=== PATIENT | male | born 1980 | race Caucasian/White ===

== ENCOUNTER 2017-11-01 16:09 | Inpatient (IN) | payer SELFPAY ==
[2017-11-01] VITALS (7 sets, daily range): BP systolic 119–140; BP diastolic 55–85; PULSE 82–99; RESP 18–21; TEMP 97.8–99.3; O2SAT 94–99
[2017-11-01] MEDS ORDERED: DIPHTH/TETANUS/ACEL PERTUSSIS (BOOSTER) 0.5 ML VIAL/PFS IM ONE ×2 (16:15→16:49)
[2017-11-01] MEDS ORDERED: ceFAZolin 2 GM PREMIX 50 ML ONE (16:15)
--- NOTE | 2017-11-01 16:35 | RADRPT ---
EXAM DATE/TIME: 11/01/2017 16:11 [facility] COMPARISON: No previous studies available for comparison. INDICATIONS : Trauma alert, fall from ladder. MEDICAL HISTORY : None. SURGICAL HISTORY : None. ENCOUNTER: Initial ACUITY: 1 day PAIN SCORE: Non-responsive. LOCATION: Bilateral chest FINDINGS: A single view of the chest demonstrates the lungs to be symmetrically aerated without evidence of mas s, infiltrate or effusion. The cardiomediastinal contours are unremarkable. Osseous structures are intact. CONCLUSION: 1. Negative trauma portable chest. Christian Cutler MD on November 01, 2017 at 16:32 Board Certified Radiologist. This report was verified electronically.
--- NOTE | 2017-11-01 16:38 | RADRPT ---
EXAM DATE/TIME: 11/01/2017 16:11 [facility] COMPARISON: No previous studies available for comparison. INDICATIONS : Trauma alert, fall from ladder. MEDICAL HISTORY : None. SURGICAL HISTORY : None. ENCOUNTER: Initial ACUITY: 1 day PAIN SCORE: Non-responsive. LOCATION: Bilateral pelvis FINDINGS: A single frontal view of the pelvis demonstrates no evidence of fracture. The bony pelvic ring is in tact. Bony mineralization is normal. The soft tissues are intact. CONCLUSION: 1. Limited underpenetrated exam. 2. No acute fracture or dislocation. Christian Cutler MD on November 01, 2017 at 16:35 Board Certified Radiologist. This report was verified electronically.
--- NOTE | 2017-11-01 16:40 | RADRPT ---
EXAM DATE/TIME: 11/01/2017 16:11 [facility] COMPARISON: No previous studies available for comparison. INDICATIONS : Trauma alert, fall from ladder. MEDICAL HISTORY : None. SURGICAL HISTORY : None. ENCOUNTER: Initial ACUITY: 1 day PAIN SCORE: Non-responsive. LOCATION: Left wrist. FINDINGS: Comminuted fracture of the distal radius with fracture extending through the radiocarpal joints. Ther e is mild ulnar and volar angulation of a distal fragment. Carpal bones are grossly intact although e valuation is limited due to lack of true lateral view. Diffuse soft tissue swelling about the wrist. CONCLUSION: 1. Comminuted distal radial fracture, as above. Christian Cutler MD on November 01, 2017 at 16:36 Board Certified Radiologist. This report was verified electronically.
[2017-11-01] MEDS ORDERED: ONDANSETRON HCL 4 MG/2 ML VIAL ONE (16:42)
[2017-11-01] MEDS ORDERED: ceFAZolin 2 GM/DEX PREMIX 50 ML IV STA (16:49)
[2017-11-01 16:52] LABS: BICARBONATE 21.4 MEQ/L (21.0-32.0); CALCIUM 9.1 MG/DL (8.5-10.1); CREATININE 1.46 MG/DL (0.60-1.30)
--- NOTE | 2017-11-01 16:55 | RADRPT ---
EXAM DATE/TIME: 11/01/2017 16:30 [facility] COMPARISON: No previous studies available for comparison. INDICATIONS : Trauma. Fall. RADIATION DOSE: 56.35 CTDIvol (mGy) MEDICAL HISTORY : None SURGICAL HISTORY : None. ENCOUNTER: Initial ACUITY: 1 day PAIN SCALE: 10/10 LOCATION: cranial TECHNIQUE: Multiple contiguous axial images were obtained of the head. Using automated exposure control and adj ustment of the mA and/or kV according to patient size, radiation dose was kept as low as reasonably a chievable to obtain optimal diagnostic quality images. DICOM format image data is available electro nically for review and comparison. FINDINGS: CEREBRUM: Limited subarachnoid hemorrhage in the frontal mid to high convexities and parafalcine region. Questi onable subtle intraparenchymal blood product in the right anterior frontal mid convexities. Mild diff use cerebral atrophy. The ventricles are normal for degree of atrophy. No evidence for midline shift. POSTERIOR FOSSA: The cerebellum and brainstem are intact. The 4th ventricle is midline. The cerebellopontine angle i s unremarkable. EXTRACRANIAL: The visualized portion of the orbits is intact. Large soft tissue hematoma in the right frontal scalp /periorbital region. SKULL: The calvaria is intact. No evidence of skull fracture. CONCLUSION: 1. Limited subarachnoid hemorrhage in the frontal high convexities and parafalcine region with questi onable subtle intraparenchymal hemorrhage in the right anterior frontal mid convexities. 2. Large soft tissue hematoma in the right frontal scalp/periorbital region. No calvarial fracture. Christian Cutler MD on November 01, 2017 at 16:48 Board Certified Radiologist. This report was verified electronically.
--- NOTE | 2017-11-01 16:58 | RADRPT ---
EXAM DATE/TIME: 11/01/2017 16:30 [facility] COMPARISON: No previous studies available for comparison. INDICATIONS : Trauma. Fall. RADIATION DOSE: 22.81 CTDIvol (mGy) MEDICAL HISTORY : None SURGICAL HISTORY : None. ENCOUNTER: Initial ACUITY: 1 day PAIN SCALE: 10/10 LOCATION: neck TECHNIQUE: Volumetric scanning of the cervical spine was performed. Multiplanar reconstructions i n the sagittal, coronal and oblique axial planes were performed. Using automated exposure control a nd adjustment of the mA and/or kV according to patient size, radiation dose was kept as low as reason ably achievable to obtain optimal diagnostic quality images. DICOM format image data is available e lectronically for review and comparison. FINDINGS: Vertebral body heights are maintained. Osseous structures are intact without evidence for acute bony fracture. Dens is intact. Sagittal alignment is maintained. There is a normal C1-2 relationship. Face ts are normally aligned. There is no significant prevertebral soft tissue hematoma. No significant ce rvical adenopathy or gross mass. The thyroid appears unremarkable. Visualized lung apices are clear w ithout pneumothorax. CONCLUSION: 1. No acute fracture or subluxation. Christian Cutler MD on November 01, 2017 at 16:53 Board Certified Radiologist. This report was verified electronically.
[2017-11-01] MEDS ORDERED: SODIUM CHLOR 0.9% 1000 ML INJ 1,000 ML IV ONE (17:00)
--- NOTE | 2017-11-01 17:00 | RADRPT ---
EXAM DATE/TIME: 11/01/2017 16:30 [facility] COMPARISON: No previous studies available for comparison. INDICATIONS : Trauma. Fall. RADIATION DOSE: 21.96 CTDIvol (mGy) MEDICAL HISTORY : None SURGICAL HISTORY : None. ENCOUNTER: Initial ACUITY: 1 day PAIN SCORE: 10/10 LOCATION: Bilateral facial TECHNIQUE: Volumetric scanning of the facial bones was performed. Using automated exposure control and adjustme nt of the mA and/or kV according to patient size, radiation dose was kept as low as reasonably achiev able to obtain optimal diagnostic quality images. DICOM format image data is available electronicall y for review and comparison. FINDINGS: ORBITS: The orbital and infraorbital osseous structures are intact. The retroconal structures have a normal configuration. No radiopaque foreign bodies are seen. NASAL BONE: The nasal bone and maxillary spine are intact ZYGOMATIC ARCHES: Symmetric without evidence of fracture. SINUSES: The maxillary, ethmoid and frontal sinuses are intact. No air-fluid levels seen. NASAL CAVITY: The nasal septum is intact and midline. The lacrimal ducts are intact. SOFT TISSUES: Large soft tissue hematoma overlying the right scalp/supraorbital soft tissues. INTRACRANIAL: No intracranial air seen. CRIBIFORM PLATE: Grossly intact. CONCLUSION: 1. Large soft tissue hematoma overlying the right scalp/supraorbital soft tissues. 2. No acute facial fractures. Christian Cutler MD on November 01, 2017 at 16:56 Board Certified Radiologist. This report was verified electronically.
--- NOTE | 2017-11-01 17:24 | HHI.HP ---
[facility] Service Critical Care Medicine Primary Care Physician Admission Diagnosis Diagnosis: Chief Complaint: Headache Travel History International Travel<30 Days: No Contact w/Intl Traveler <30 Da: No Traveled to Known Affected Are: No History of Present Illness This is a gentleman who fell from a ladder of an unknown height. There was loss of consciousness and all he remembers is waking up in the ambulance. He was brought in his level 2 trauma alert alert and oriented with a Devin Coma Scale of 15 his vital signs were stable. He had a small laceration to the lateral border of his right eyebrow and an obvious left wrist deformity. Review of Systems Constitutional: DENIES: Diaphoretic episodes, Fatigue, Fever, Weight gain, Weight loss, Chills, Dizziness, Change in appetite, Night Sweats Endocrine: DENIES: Heat/cold intolerance, Polydipsia, Polyuria, Polyphagia Eyes: DENIES: Blurred vision, Diplopia, Eye inflammation, Eye pain, Vision loss , Photosensitivity, Double Vision Ears, nose, mouth, throat: DENIES: Tinnitus, Hearing loss, Vertigo, Nasal discharge, Oral lesions, Throat pain, Hoarseness, Ear Pain, Running Nose, Epistaxis, Sinus Pain, Toothache, Odynophagia Respiratory: DENIES: Apneas, Cough, Snoring, Wheezing, Hemoptysis, Sputum production, Shortness of breath Cardiovascular: DENIES: Chest pain, Palpitations, Syncope, Dyspnea on Exertion , PND, Lower Extremity Edema, Orthopnea, Claudication Gastrointestinal: DENIES: Abdominal pain, Black stools, Bloody stools, Constipation, Diarrhea, Nausea, Vomiting, Difficulty Swallowing, Anorexia Genitourinary: DENIES: Sexual dysfunction, Urinary frequency, Urinary incontinence, Urgency, Hematuria, Dysuria, Nocturia, Penile Discharge, Testicular Pain, Testicular Swelling Musculoskeletal: COMPLAINS OF: Joint pain (Left wrist), DENIES: Muscle aches, Stiffness, Joint Swelling, Back pain, Neck pain Integumentary: DENIES: Abnormal pigmentation, Nail changes, Pruritus, Rash Hematologic/lymphatic: DENIES: Bruising, Lymphadenopathy Immunologic/allergic: DENIES: Eczema, Urticaria Neurologic: DENIES: Abnormal gait, Headache, Localized weakness, Paresthesias, Seizures, Speech Problems, Tremor, Poor Balance Psychiatric: DENIES: Anxiety, Confusion, Mood changes, Depression, Hallucinations, Agitation, Suicidal Ideation, Homicidal Ideation, Delusions Past Family Social History Allergies: Coded Allergies: No Allergy Information Available (Unverified , 11/01/17) TRAUMA PATIENT Past Medical History Patient denies any significant medical history Past Surgical History Patient denies any significant surgical history Reported Medications Patient denies any medication on a daily basis Family History Reviewed and not relevant Social History Patient denies alcohol tobacco or drug use Physical Exam Vital Signs Vital Signs Date Time Temp Pulse Resp B/P (MAP) Pulse Ox O2 Delivery O2 Flow Rate FiO2 11/01/17 17:07 93 18 97 Room Air 11/01/17 17:07 98 Room Air 11/01/17 17:01 93 18 119/55 (76) 97 Room Air 11/01/17 16:10 98 21 Physical Exam Alert and oriented, no acute distress Small superficial laceration over the right eye brow Pupils equal round reactive to light extraocular movement intact sclera nonicteric conjunctiva pink Neck is soft trachea is midline he has no cervical tenderness to palpation Lungs are clear to auscultation bilaterally, diminished Heart regular rate and rhythm Abdomen soft nontender nondistended, obese with an umbilical hernia Pelvis stable and nontender, femoral pulses palpable bilaterally No clubbing cyanosis or edema, distal pulses are palpable bilaterally Cranial nerves II through XII appear grossly intact there is no focal neurologic deficit Mood and affect are appropriate Laboratory Laboratory Tests Test 11/01/17 16:15 Blood Urea Nitrogen 25 Creatinine 1.46 Random Glucose 127 Calcium Level 9.1 Sodium Level 142 Potassium Level 4.2 Chloride Level 107 Carbon Dioxide Level 21.4 Anion Gap 14 Estimat Glomerular Filtration Rate 42 Result Diagram: 11/01/17 1615 Imaging Last Impressions Chest X-Ray 11/01/17 0000 Signed Impressions: Service Date/Time: Wednesday, November 01, 2017 16:11 - CONCLUSION: 1. Negative trauma portable chest. MD Oz Hartmann VTE Risk Assessment Oz VTE Risk Assessment: Mod/High Risk (score >= 2) VTE Pharm Contraindication: Hemorrhage Caprini Risk Assessment Model Point Value = 1 Point Value = 2 Point Value = 3 Point Value = 5 Age 41-60 Minor surgery BMI > 25 kg/m2 Swollen legs Varicose veins or History of unexplained or recurrent spontaneous Oral contraceptives or hormone replacement Sepsis (< 1 month) Serious lung disease, including pneumonia (< 1 month) Abnormal pulmonary function Acute myocardial infarction Congestive heart failure (< 1 month) History of inflammatory bowel disease Medical patient at bed rest Age 61-74 Arthroscopic surgery Major open surgery (> 45 min) Laparoscopic surgery (> 45 min) Malignancy Confined to bed (> 72 hours) Immobilizing plaster cast Central venous access Age >= 75 History of VTE Family history of VTE Factor V Leiden Prothrombin [id number] Lupus anticoagulant Anticardiolipin antibodies Elevated serum homocysteine Heparin-induced thrombocytopenia Other congenital or acquired thrombophilia Stroke (< 1 month) Elective arthroplasty Hip, pelvis, or leg fracture Acute spinal cord injury (< 1 month) Prophylaxis Regimen Total Risk Factor Score Risk Level Prophylaxis Regimen 0-1 Low Early ambulation 2 Moderate Order ONE of the following: *Sequential Compression Device (SCD) *Heparin 5000 units SQ BID 3-4 Higher Order ONE of the following medications: *Heparin 5000 units SQ TID *Enoxaparin/Lovenox 40 mg SQ daily (WT < 150 kg, CrCl > 30 mL/min) *Enoxaparin/Lovenox 30 mg SQ daily (WT < 150 kg, CrCl > 10-29 mL/min) *Enoxaparin/Lovenox 30 mg SQ BID (WT < 150 kg, CrCl > 30 mL/min) AND/OR *Sequential Compression Device (SCD) 5 or more Highest Order ONE of the following medications: *Heparin 5000 units SQ TID (Preferred with Epidurals) *Enoxaparin/Lovenox 40 mg SQ daily (WT < 150 kg, CrCl > 30 mL/min) *Enoxaparin/Lovenox 30 mg SQ daily (WT < 150 kg, CrCl > 10-29 mL/min) *Enoxaparin/Lovenox 30 mg SQ BID (WT < 150 kg, CrCl > 30 mL/min) AND *Sequential Compression Device (SCD) Assessment and Plan Assessment and Plan Small frontal subarachnoid hemorrhage and closed left wrist fracture following a fall from an unknown height while on a ladder -Admit to trauma ICU for serial neurologic exams and continuous hemo-dynamic monitoring -Neurosurgery consult to follow small subarachnoid hemorrhage -Left wrist was splinted in the trauma bay, orthopedic consult is pending -Repeat head CT in the morning Lawrence Forbes MD November 01, 2017 17:24
[2017-11-01] MEDS ORDERED: SODIUM CHLORIDE 0.9% FLUSH 10 ML FLUSH IV FLUSH PRN ×2 (17:30→18:45)
[2017-11-01] MEDS ORDERED: CHLORHEXIDINE GLUCONATE 2 % 1 PACK (2 CLOTHS) TOP PRN (17:30)
[2017-11-01] MEDS ORDERED: MAGNESIUM HYDROXIDE SUSP 30 ML CUP PO PRN ×2 (17:30→18:45)
[2017-11-01] MEDS ORDERED: ACETAMINOPHEN/HYDROcodone 325 MG/5 MG TAB PO PRN (17:30)
[2017-11-01] MEDS ORDERED: NURSING INFORMATION XX SCH (17:30)
[2017-11-01] MEDS ORDERED: ONDANSETRON HCL 4 MG/2 ML VIAL IV PUSH PRN (17:30)
[2017-11-01 17:35] LABS: BASOPHIL % 0.4 % (0.0-2.0); EOSINOPHIL # 0.1 TH/MM3 (0-0.4); EOSINOPHIL % 0.5 % (0.0-4.0); HEMATOCRIT 42.4 % (39.0-51.0); HEMOGLOBIN 14.8 GM/DL (13.0-17.0); LYMPHOCYTE # 1.9 TH/MM3 (1.0-4.8); MEAN CELL VOLUME 87.4 FL (80.0-100.0); MEAN CORPUSCULAR HEMOGLOBIN 30.5 PG (27.0-34.0); MEAN CORPUSCULAR HGB CONC 34.9 % (32.0-36.0); MEAN PLATELET VOLUME 7.9 FL (7.0-11.0); MONO % 5.6 % (0.0-8.0); MONOCYTE # 0.6 TH/MM3 (0-0.9); NEUT % 75.5 % (16.0-70.0); PLATELET COUNT 271 TH/MM3 (150-450); RED BLOOD COUNT 4.85 MIL/MM3 (4.50-5.90); RED CELL DISTRIBUTION WIDTH 13.5 % (11.6-17.2); WHITE BLOOD COUNT 10.6 TH/MM3 (4.0-11.0)
--- NOTE | 2017-11-01 17:35 | PD ---
HPI Chief Complaint: Trauma (Alert) Time Seen by Provider: 17:17 Travel History International Travel<30 days: No Contact w/Intl Traveler<30days: No Traveled to known affect area: No History of Present Illness HPI Patient is a 37-year-old male who presents the emergency room as a level 2 trauma. Patient reports that he was working on a ladder, reports that he fell off the ladder and landed onto cement. Bystanders report that patient had an episode of seizure, reports that he was initially postictal, patient presents the emergency room with a GCS of 15 with vital stable sign. Patient reports that he has no medical history, patient with no allergies to medications, please see trauma records for full workup PFSH Past Medical History Medical History: Denies Significant Hx Past Surgical History Surgical History: No Previous Surgery Social History Tobacco Use: No Allergies-Medications (Allergen,Severity, Reaction): Coded Allergies: No Allergy Information Available (Unverified , 11/01/17) TRAUMA PATIENT Review of Systems General / Constitutional: No: Fever Eyes: No: Visual changes HENT: Positive: Headaches Cardiovascular: No: Chest Pain or Discomfort Respiratory: No: Shortness of Breath Gastrointestinal: No: Abdominal Pain Genitourinary: No: Dysuria Musculoskeletal: No: Pain Skin: Positive Other (laceration to near right lateral eye brow), No Rash Neurologic: No: Weakness Psychiatric: No: Depression Endocrine: No: Polydipsia Hematologic/Lymphatic: No: Easy Bruising Physical Exam Narrative GENERAL: moderate distress SKIN: Focused skin assessment warm/dry. HEAD: Normocephalic. 3cm linear laceration to right eyebrow EYES: Pupils equal and round. No scleral icterus. No injection or drainage. Patient with right-sided periorbital hematoma, EOMIs intact ENT: No nasal bleeding or discharge. Mucous membranes pink and moist. NECK: Trachea midline. No JVD. Patient in c-spine precautions CARDIOVASCULAR: Regular rate and rhythm. No murmur appreciated. RESPIRATORY: No accessory muscle use. Clear to auscultation. Breath sounds equal bilaterally. GASTROINTESTINAL: Abdomen soft, non-tender, nondistended. Hepatic and splenic margins not palpable. MUSCULOSKELETAL: No obvious deformities. No clubbing. No cyanosis. No edema. Patient with no midline cervical, thoracic or lumbar tenderness. Patient with obvious deformities to the left wrist, no open fractures, pulses intact, neurovascular intact NEUROLOGICAL: Awake and alert. No obvious cranial nerve deficits. Motor grossly within normal limits. Normal speech. PSYCHIATRIC: Appropriate mood and affect; insight and judgment normal. Data Data Last Documented VS Vital Signs Date Time Temp Pulse Resp B/P (MAP) Pulse Ox O2 Delivery O2 Flow Rate FiO2 11/01/17 17:07 93 18 97 Room Air 11/01/17 17:01 119/55 (76) 11/01/17 16:10 21 Orders Orders Cefazolin 2 Gm Premix (Ancef 2 Gm Premix (11/01/17 16:15) Xdyw-Ase-Ufqddz (Booster) Inj (Boostrix (11/01/17 16:15) Complete Blood Count With Diff (11/01/17 16:12) Prothrombin Time / Inr (Pt) (11/01/17 16:12) Act Partial Throm Time (Ptt) (11/01/17 16:12) Type And Screen (11/01/17 16:12) Pelvis, Ap Only (Routine) (11/01/17 16:12) Ct Brain W/O Iv Contrast(Rout) (11/01/17 16:12) Ct Cerv Spine W/O Contrast (11/01/17 16:12) Ct Facial Bones W/O Iv Cont (11/01/17 16:12) Remove Cervical Collar (11/01/17 16:12) Iv Access Insert/Monitor (11/01/17 16:12) Ecg Monitoring (11/01/17 16:12) Oximetry (11/01/17 16:12) Oxygen Administration (11/01/17 16:12) Basic Metabolic Panel (Bmp) (11/01/17 16:12) Chest, Single Ap (11/01/17 ) Wrist, Complete (Wrh1psb) (11/01/17 ) Ondansetron Inj (Zofran Inj) (11/01/17 16:42) Cefazolin 2 Gm Premix (Ancef 2 Gm Premix (11/01/17 16:49) Kcdy-Phh-Ekhyra (Booster) Inj (Boostrix (11/01/17 16:49) Sodium Chlor 0.9% 1000 Ml Inj (Ns 1000 M (11/01/17 17:00) Ct Abd/Pel W Iv Contrast(Rout) (11/01/17 17:03) Ct Thorax/ Chest W Iv Contrast (11/01/17 17:03) Admit To Inpatient (11/01/17 ) Vital Signs (Adult) LEORA.QSHIFT (11/01/17 17:16) Intake + Output LEORA.Q8H (11/01/17 17:16) Activity Bed Rest (11/01/17 17:16) Scd / Roel / Foot Pump LEORA.QSHIFT (11/01/17 17:16) Resp Incentive Spirometry (11/01/17 ) ^ Cervical Collar (11/01/17 17:16) Complete Blood Count With Diff (11/02/17 06:00) Basic Metabolic Panel (Bmp) (11/02/17 06:00) Sodium Chloride 0.9% Flush (Ns Flush) (11/01/17 17:30) Acetamin-Hydrocod 325-5 Mg ([place] 5-325 (11/01/17 17:30) Acetamin-Hydrocod 325-5 Mg ([place] 5-325 (11/01/17 17:30) Acetaminophen (Tylenol) (11/01/17 17:30) Ondansetron Inj (Zofran Inj) (11/01/17 17:30) Consult Pt Eval & Treat (11/01/17 17:16) Ot Request For Service (11/01/17 17:16) Docusate Sodium (Colace) (11/01/17 21:00) Magnesium Hydroxide Liq (Milk Of Magnesi (11/01/17 17:30) Consult Orthopedic (11/01/17 ) ^ Initiate Protocol (11/01/17 17:16) Instruction (11/01/17 17:16) Nursing Information ([facility] Nursing Inform (11/01/17 17:30) Chlorhexidine 2% Cloth (Chlorhexidine 2% (11/02/17 04:00) Chlorhexidine 2% Cloth (Chlorhexidine 2% (11/01/17 17:30) Mrsa Pcr Surveillance (11/01/17 17:16) Inpatient Certification (11/01/17 ) Consult Neurosurgery (11/01/17 ) Admit Order (Ed Use Only) (11/01/17 17:22) Labs Laboratory Tests Test 11/01/17 16:15 11/01/17 17:08 Blood Urea Nitrogen 25 MG/DL Creatinine 1.46 MG/DL Random Glucose 127 MG/DL Calcium Level 9.1 MG/DL Sodium Level 142 MEQ/L Potassium Level 4.2 MEQ/L Chloride Level 107 MEQ/L Carbon Dioxide Level 21.4 MEQ/L Anion Gap 14 MEQ/L Estimat Glomerular Filtration Rate 42 ML/MIN White Blood Count 10.6 TH/MM3 Red Blood Count 4.85 MIL/MM3 Hemoglobin 14.8 GM/DL Hematocrit 42.4 % Mean Corpuscular Volume 87.4 FL Mean Corpuscular Hemoglobin 30.5 PG Mean Corpuscular Hemoglobin Concent 34.9 % Red Cell Distribution Width 13.5 % Platelet Count 271 TH/MM3 Mean Platelet Volume 7.9 FL Neutrophils (%) (Auto) 75.5 % Lymphocytes (%) (Auto) 18.0 % Monocytes (%) (Auto) 5.6 % Eosinophils (%) (Auto) 0.5 % Basophils (%) (Auto) 0.4 % Neutrophils # (Auto) 8.0 TH/MM3 Lymphocytes # (Auto) 1.9 TH/MM3 Monocytes # (Auto) 0.6 TH/MM3 Eosinophils # (Auto) 0.1 TH/MM3 Basophils # (Auto) 0.0 TH/MM3 CBC Comment DIFF FINAL Differential Comment Prothrombin Time 9.6 SEC Prothromb Time International Ratio 0.9 RATIO Activated Partial Thromboplast Time 23.4 SEC MDM Medical Screen Exam Complete: Yes Emergency Medical Condition: Yes Differential Diagnosis Intracranial hemorrhage, concussion, cervical spine fracture, whiplash, wrist fracture Narrative Course 37-year-old male who presents to emergency room as a level 2 trauma. Please see trauma records for full workup. During the course of the patients emergency department visit, the patients history, examination, and differential diagnosis were reviewed with the patient. The patient was placed on a personnel monitor with oximetry and frequent blood pressure monitoring. The patient had an IV access obtained and blood work sent for analysis. The patient was initially provided IV saline bolus, tetanus booster, IV Ancef.. The patients laboratory studies were reviewed and remarkable for CBC & BMP Diagram 11/01/17 16:15 Calcium Level 9.1 Radiology studies were reviewed and remarkable for Last Impressions Pelvis X-Ray 11/01/17 1612 Signed Impressions: Service Date/Time: Wednesday, November 01, 2017 16:11 - CONCLUSION: 1. Limited underpenetrated exam. 2. No acute fracture or dislocation. Christian Cutler MD Head CT 11/01/17 1612 Signed Impressions: Service Date/Time: Wednesday, November 01, 2017 16:30 - CONCLUSION: 1. Limited subarachnoid hemorrhage in the frontal high convexities and parafalcine region with questionable subtle intraparenchymal hemorrhage in the right anterior frontal mid convexities. 2. Large soft tissue hematoma in the right frontal scalp/periorbital region. No calvarial fracture. Christian Cutler MD Wrist X-Ray 11/01/17 0000 Signed Impressions: Service Date/Time: Wednesday, November 01, 2017 16:11 - CONCLUSION: 1. Comminuted distal radial fracture, as above. Christian Cutler MD Chest X-Ray 11/01/17 0000 Signed Impressions: Service Date/Time: Wednesday, November 01, 2017 16:11 - CONCLUSION: 1. Negative trauma portable chest. Christian Cutler MD CT of the head with limited subarachnoid hemorrhage in the frontal high convexities as well as para falcine region with questionable subtle intraparenchymal hemorrhage in the right anterior frontal mid convexities. Patient also with a fracture to the distal radius, plan to consult orthopedic surgeon. Left wrist was splinted by creative technologist Patient will be admitted to trauma surgeon service, orthopedic surgery as well as neurosurgery will be consulted. Critical Care Narrative Aggregate critical care time was 30 minutes. Time to perform other separately billable procedures was not included in the critical care time. My time did not include minutes spent treating any other patients simultaneously or on activities that did not directly contribute to the patient's treatment. The services I provided to this patient were to treat and/or prevent clinically significant deterioration that could result in: , decompensation, deterioration I provided critical care services requiring my management, as noted below: Chart data review, documentation time, medication orders and management, vital sign assessments/reviewing monitor data, ordering and reviewing lab tests, ordering and interpreting/reviewing x-rays and diagnostic studies, care of the patient and discussion of the patient with the admitting physicians. Trauma Alert - Level Two Trauma Alert Level Two: Full trauma team activate, Patient evaluated, Trauma surgeon called Diagnosis Diagnosis: Primary Impression: Intracranial hemorrhage Additional Impressions: Distal radius fracture, left Trauma Admitting Physician Requests: Admit Rina Cisneros DO November 01, 2017 17:35
[2017-11-01] MEDS ORDERED: IOHEXOL 350 MG/ML 10 ML VIAL (for RAD DIAG) IVCONTRAST ONE (17:36)
[2017-11-01 17:44] LABS: INTERNATIONAL NORMALIZED RATIO 0.9 RATIO; PROTHROMBIN TIME - PATIENT 9.6 SEC (9.8-11.6)
--- NOTE | 2017-11-01 18:13 | RADRPT ---
EXAM DATE/TIME: 11/01/2017 17:36 [facility] COMPARISON: No previous studies available for comparison. INDICATIONS : Trauma. Fall. IV CONTRAST: 100 cc Omnipaque 350 (iohexol) IV ; Cumulative dose for multiple exams. ORAL CONTRAST: No oral contrast ingested. RADIATION DOSE: 34.07 CTDIvol (mGy) ; Combined studies - Thorax/Abdomen/Pelvis MEDICAL HISTORY : Non-responsive. SURGICAL HISTORY : Non-responsive. ENCOUNTER: Initial ACUITY: 1 day PAIN SCALE: Non-responsive LOCATION: Bilateral abdomen and pelvis TECHNIQUE: Volumetric scanning of the abdomen and pelvis was performed. Using automated exposure control and ad justment of the mA and/or kV according to patient size, radiation dose was kept as low as reasonably achievable to obtain optimal diagnostic quality images. DICOM format image data is available electro nically for review and comparison. FINDINGS: No acute findings at the lung bases. No significant abnormality in the liver, spleen, adrenals, kidne ys or pancreas. No free air or free fluid. No bowel obstruction. Fat-containing umbilical hernia telma ures about 4 cm in diameter. No acute bony abnormalities. CONCLUSION: 1. Negative for acute traumatic injury within the abdomen and pelvis. Fat-containing umbilical hernia . Adair Hernandez MD on November 01, 2017 at 18:08 Board Certified Radiologist. This report was verified electronically.
--- NOTE | 2017-11-01 18:15 | RADRPT ---
EXAM DATE/TIME: 11/01/2017 17:36 [facility] COMPARISON: No previous studies available for comparison. INDICATIONS : Trauma. Fall. IV CONTRAST: 100 cc Omnipaque 350 (iohexol) IV ; Cumulative dose for multiple exams. RADIATION DOSE: 34.07 CTDIvol (mGy) ; Combined studies - Thorax/Abdomen/Pelvis MEDICAL HISTORY : Non-responsive. SURGICAL HISTORY : Non-responsive. ENCOUNTER: Initial ACUITY: 1 day PAIN SCALE: Non-responsive LOCATION: chest TECHNIQUE: Volumetric scanning of the chest was performed. Using automated exposure control and adjustment of t he mA and/or kV according to patient size, radiation dose was kept as low as reasonably achievable to obtain optimal diagnostic quality images. DICOM format image data is available electronically for review and comparison. Follow-up recommendations for detected pulmonary nodules are based at a minimum on nodule size and pa tient risk factors according to Fleischner Society Guidelines. FINDINGS: LUNGS: There is no consolidation or pneumothorax. No concerning pulmonary nodule is visualized. PLEURA: There is no pleural thickening or pleural effusion. MEDIASTINUM: The heart and great vessels demonstrate no acute abnormality. There is no mediastinal or hilar lymph adenopathy. AXILLAE: Within normal limits. No lymphadenopathy. SKELETAL: Within normal limits for patient age. MISCELLANEOUS: The visualized upper abdominal organs demonstrate no acute abnormality. CONCLUSION: 1. No focal consolidation or effusion. Minimal basilar airspace disease. Negative for acute traumatic injury within the thorax. Adair Hernandez MD on November 01, 2017 at 18:11 Board Certified Radiologist. This report was verified electronically.
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
[2017-11-01] MEDS: ACETAMINOPHEN/HYDROcodone 325 MG/5 MG TAB PO PRN ×2 (18:30→22:35)
[2017-11-01] MEDS ORDERED: LABETALOL HCL 100 MG/20 ML VIAL IV PUSH PRN (18:45)
[2017-11-01] MEDS ORDERED: CALCIUM GLUCONATE INJ 1 GM in SODIUM CHLORIDE 0.9% INJ 100 ML IV PRN (18:45)
[2017-11-01] MEDS ORDERED: MAGNESIUM SULFATE INJ 2 GM in SODIUM CHLORIDE 0.9% INJ 100 ML IV PRN (18:45)
[2017-11-01] MEDS ORDERED: POTASSIUM CHLOR 20 MEQ PREMIX 100 ML IV PRN (18:45)
[2017-11-01] MEDS ORDERED: ALUMINUM/MAGNESIUM/SIMETH 30 ML CUP PO PRN (18:45)
[2017-11-01] MEDS ORDERED: SENNOSIDES 8.6 MG TAB PO PRN (18:45)
[2017-11-01] MEDS ORDERED: BISACODYL 10 MG SUPP RECTAL PRN (18:45)
[2017-11-01] MEDS ORDERED: LORazepam 2 MG/ML VIAL IV PUSH PRN (18:45)
[2017-11-01] MEDS ORDERED: cloNIDine HCL 0.1 MG TAB PO PRN (18:45)
[2017-11-01] MEDS ORDERED: RESP: ALBUTEROL 2.5 MG/3 ML NEB (PRN) NEB (18:45)
[2017-11-01] MEDS ORDERED: LACTULOSE SYRUP 20 GM/30 ML CUP PO PRN (18:45)
--- NOTE | 2017-11-01 19:44 | RADRPT ---
EXAM DATE/TIME: 11/01/2017 19:02 [facility] COMPARISON: No previous studies available for comparison. INDICATIONS : Pain with movement in right wrist. MEDICAL HISTORY : None. SURGICAL HISTORY : None. ENCOUNTER: Subsequent ACUITY: 1 day PAIN SCORE: 6/10 LOCATION: Right upper extremity wrist FINDINGS: There is a small avulsion fracture on the dorsal aspect of the wrist, probably from the triquetral michael ne. No dislocation. No other fractures are seen. CONCLUSION: Probable small avulsion fracture of the dorsal aspect of the triquetral bone. Adair Hernandez MD on November 01, 2017 at 19:41 Board Certified Radiologist. This report was verified electronically.
[2017-11-01] MEDS: levETIRAcetam INJ 500 MG in SODIUM CHLORIDE 0.9% INJ 100 ML IV SCH (20:15)
[2017-11-01] MEDS: DOCUSATE SODIUM 50 MG/SENNA 8.6 MG TAB PO SCH (20:15)
[2017-11-01] MEDS: SODIUM CHLORIDE 0.9% FLUSH 10 ML FLUSH IV FLUSH SCH (20:15)
[2017-11-01] MEDS ORDERED: DOCUSATE SODIUM 100 MG CAP PO SCH (21:00)
[2017-11-01] MEDS: BACITRACIN TOP OINT 15 GM TUBE TOP SCH (22:35)
[2017-11-02] VITALS (11 sets, daily range): BP systolic 130–172; BP diastolic 68–79; PULSE 68–103; RESP 7–20; TEMP 98.1–98.9; O2SAT 93–98
[2017-11-02] MEDS: MORPHINE SULFATE 4 MG/ML INJ IV PUSH PRN ×3 (01:21→08:28)
[2017-11-02] MEDS: CHLORHEXIDINE GLUCONATE 2 % 1 PACK (2 CLOTHS) TOP SCH (03:20)
[2017-11-02] MEDS: ACETAMINOPHEN/HYDROcodone 325 MG/5 MG TAB PO PRN ×2 (03:22→09:02)
[2017-11-02] MEDS ORDERED: EPINEPHrine HCL (1:10,000) 1 MG/10 ML SYRINGE ONE (03:56)
[2017-11-02] MEDS ORDERED: LIDOCAINE HCL 2% 100 MG/5 ML SYRINGE ONE (03:57)
[2017-11-02] MEDS ORDERED: ATROPINE SULFATE 1 MG/10 ML SYRINGE ONE (03:57)
--- NOTE | 2017-11-02 05:27 | RADRPT ---
EXAM DATE/TIME: 11/02/2017 04:43 [facility] COMPARISON: CT BRAIN W/O CONTRAST, November 01, 2017, 16:30. INDICATIONS : Follow up trauma. RADIATION DOSE: 66.34 CTDIvol (mGy) MEDICAL HISTORY : Non-responsive. SURGICAL HISTORY : Non-responsive. ENCOUNTER: Subsequent ACUITY: 1 day PAIN SCALE: Non-responsive LOCATION: cranial TECHNIQUE: Multiple contiguous axial images were obtained of the head. Using automated exposure control and adj ustment of the mA and/or kV according to patient size, radiation dose was kept as low as reasonably a chievable to obtain optimal diagnostic quality images. DICOM format image data is available electro nically for review and comparison. FINDINGS: Evolving small bifrontal parenchymal contusions are present. No new acute findings identified. No sig nificant brain edema or shift. Ventricles are stable symmetric and normal. CONCLUSION: Mild evolving parenchymal brain contusions. No new acute findings Ralph Rodriguez MD on November 02, 2017 at 5:22 Board Certified Radiologist. This report was verified electronically.
[2017-11-02 06:40] LABS: AUTOMATED NEUTROPHIL # 7.8 TH/MM3 (1.8-7.7); BASOPHIL % 0.3 % (0.0-2.0); EOSINOPHIL # 0.1 TH/MM3 (0-0.4); EOSINOPHIL % 0.8 % (0.0-4.0); HEMATOCRIT 40.9 % (39.0-51.0); HEMOGLOBIN 14.2 GM/DL (13.0-17.0); LYMPH % 16.5 % (9.0-44.0); LYMPHOCYTE # 1.8 TH/MM3 (1.0-4.8); MEAN CELL VOLUME 87.7 FL (80.0-100.0); MEAN CORPUSCULAR HEMOGLOBIN 30.4 PG (27.0-34.0); MEAN CORPUSCULAR HGB CONC 34.6 % (32.0-36.0); MEAN PLATELET VOLUME 7.7 FL (7.0-11.0); MONO % 9.1 % (0.0-8.0); NEUT % 73.3 % (16.0-70.0); PLATELET COUNT 265 TH/MM3 (150-450); RED BLOOD COUNT 4.66 MIL/MM3 (4.50-5.90); RED CELL DISTRIBUTION WIDTH 13.5 % (11.6-17.2); WHITE BLOOD COUNT 10.6 TH/MM3 (4.0-11.0)
[2017-11-02 07:03] LABS: BICARBONATE 26.4 MEQ/L (21.0-32.0); CALCIUM 7.9 MG/DL (8.5-10.1); CREATININE 1.15 MG/DL (0.60-1.30)
[2017-11-02] MEDS ORDERED: VANCOMYCIN HCL 1000 MG VIAL ONE ×2 (07:31→12:13)
[2017-11-02] MEDS ORDERED: GENTAMICIN SULFATE 80 MG/2 ML VIAL ONE ×2 (07:31→12:13)
[2017-11-02] MEDS: DOCUSATE SODIUM 50 MG/SENNA 8.6 MG TAB PO SCH ×2 (09:00→19:45)
[2017-11-02] MEDS: levETIRAcetam INJ 500 MG in SODIUM CHLORIDE 0.9% INJ 100 ML IV SCH ×2 (09:02→19:45)
[2017-11-02] MEDS: PANTOPRAZOLE SODIUM 40 MG VIAL IVP SCH (09:02)
[2017-11-02] MEDS ORDERED: MORPHINE SULFATE 4 MG/ML INJ IV PUSH PRN (09:30)
--- NOTE | 2017-11-02 10:31 | HHI.NSPN ---
(Monroe Jackman) History Chief Complaint: Headaches s/p fall with TBI. (Monroe Jackman) Interval History 37-year-old gentleman who is brought in as a trauma alert after a fall from a ladder about 12 feet. Patient is amnestic of the event with positive loss of consciousness. His main complaint is a headache with nausea and vomiting and the left wrist pain. relates that the friend who was with him at the time stated that he may have had a seizure after the fall. Denies any neck or back pain or any numbness or paresthesias in the upper lower extremities. Trauma workup included a CT scan of the head which revealed small frontal lobe contusion and traumatic cervical hemorrhage as well as a small interhemispheric frontal subdural hemorrhage without mass-effect or midline shift. CT the cervical spine is negative. He has a comminuted left radial fracture. 11/02/17: Pt complains of headache all over. No n/v, paresthesias or weakness in extremities other than left hand paresthesias and LUE is in a splint. Pt going to OR this am with orthopedics for left wrist fracture. (Monroe Jackman) Review of Systems General: Negative for: fever, chills, insomnia Respiratory: Negative for: shortness of breath, cough, sputum Cardiovascular: Negative for: chest pain Gastrointestinal: Negative for: nausea, vomitting, diarrhea, constipation ( Monroe Jackman) Exam Results Vital Signs Date Time Temp Pulse Resp B/P (MAP) Pulse Ox O2 Delivery O2 Flow Rate FiO2 11/02/17 06:00 84 11/02/17 04:00 98.6 20 139/68 (91) 95 11/01/17 21:33 21 11/01/17 19:00 Room Air Intake and Output 11/02/17 11/02/17 11/02/17 07:59 15:59 23:59 Intake Total 440 ml Output Total 1100 ml Balance -660 ml (Monroe Jackman) Physical Examination General: Pt awake and alert. Resting in ICU in NAD. Eyes: pupils equal. Sclera anicteric. He has right periorbital edema and ecchymosis with a small abrasion/laceration right eyebrow area. Resp: CTA bilaterally. Heart: NSR no murmurs Abd: Soft positive bs Skin: He has right periorbital edema and ecchymosis with a small abrasion/ laceration right eyebrow area. Muscle: Moves LEs well. 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 Left upper extremity in a splint and bandaged. Neuro: Pt awake and alert. Pupils 3mm bilaterally reactive bilaterally. Follows commands well. Speech clear and appropriate. (Monroe Jackman) Lab, Micro, Other Results Last Impressions Head CT 11/02/17 0600 Signed Impressions: Service Date/Time: Thursday, November 02, 2017 04:43 - CONCLUSION: Mild evolving parenchymal brain contusions. No new acute findings Ralph Rodriguez MD Chest CT 11/01/17 1703 Signed Impressions: Service Date/Time: Wednesday, November 01, 2017 17:36 - CONCLUSION: 1. No focal consolidation or effusion. Minimal basilar airspace disease. Negative for acute traumatic injury within the thorax. Adair Hernandez MD Abdomen/Pelvis CT 11/01/17 170 Signed Impressions: Service Date/Time: Wednesday, November 01, 2017 17:36 - CONCLUSION: 1. Negative for acute traumatic injury within the abdomen and pelvis. Fat-containing umbilical hernia. Adair Hernandez MD Pelvis X-Ray 11/01/17 161 Signed Impressions: Service Date/Time: Wednesday, November 01, 2017 16:11 - CONCLUSION: 1. Limited underpenetrated exam. 2. No acute fracture or dislocation. Christian Cutler MD Maxillofacial CT 11/01/17 161 Signed Impressions: Service Date/Time: Wednesday, November 01, 2017 16:30 - CONCLUSION: 1. Large soft tissue hematoma overlying the right scalp/supraorbital soft tissues. 2. No acute facial fractures. Christian Cutler MD Cervical Spine CT 11/01/17 161 Signed Impressions: Service Date/Time: Wednesday, November 01, 2017 16:30 - CONCLUSION: 1. No acute fracture or subluxation. Christian Cutler MD Wrist X-Ray 11/01/17 0000 Signed Impressions: Service Date/Time: Wednesday, November 01, 2017 19:02 - CONCLUSION: Probable small avulsion fracture of the dorsal aspect of the triquetral bone. Adair Hernandez MD Chest X-Ray 11/01/17 0000 Signed Impressions: Service Date/Time: Wednesday, November 01, 2017 16:11 - CONCLUSION: 1. Negative trauma portable chest. Christian Cutler MD Laboratory Tests Test 11/01/17 16:15 11/01/17 17:08 11/02/17 04:00 11/02/17 05:14 Blood Urea Nitrogen 25 MG/DL 15 MG/DL Creatinine 1.46 MG/DL 1.15 MG/DL Random Glucose 127 MG/DL 97 MG/DL Calcium Level 9.1 MG/DL 7.9 MG/DL Sodium Level 142 MEQ/L 144 MEQ/L Potassium Level 4.2 MEQ/L 3.7 MEQ/L Chloride Level 107 MEQ/L 108 MEQ/L Carbon Dioxide Level 21.4 MEQ/L 26.4 MEQ/L Anion Gap 14 MEQ/L 10 MEQ/L Estimat Glomerular Filtration Rate 42 ML/MIN 55 ML/MIN White Blood Count 10.6 TH/MM3 10.6 TH/MM3 Red Blood Count 4.85 MIL/MM3 4.66 MIL/MM3 Hemoglobin 14.8 GM/DL 14.2 GM/DL Hematocrit 42.4 % 40.9 % Mean Corpuscular Volume 87.4 FL 87.7 FL Mean Corpuscular Hemoglobin 30.5 PG 30.4 PG Mean Corpuscular Hemoglobin Concent 34.9 % 34.6 % Red Cell Distribution Width 13.5 % 13.5 % Platelet Count 271 TH/MM3 265 TH/MM3 Mean Platelet Volume 7.9 FL 7.7 FL Neutrophils (%) (Auto) 75.5 % 73.3 % Lymphocytes (%) (Auto) 18.0 % 16.5 % Monocytes (%) (Auto) 5.6 % 9.1 % Eosinophils (%) (Auto) 0.5 % 0.8 % Basophils (%) (Auto) 0.4 % 0.3 % Neutrophils # (Auto) 8.0 TH/MM3 7.8 TH/MM3 Lymphocytes # (Auto) 1.9 TH/MM3 1.8 TH/MM3 Monocytes # (Auto) 0.6 TH/MM3 1.0 TH/MM3 Eosinophils # (Auto) 0.1 TH/MM3 0.1 TH/MM3 Basophils # (Auto) 0.0 TH/MM3 0.0 TH/MM3 CBC Comment DIFF FINAL DIFF FINAL Differential Comment Prothrombin Time 9.6 SEC Prothromb Time International Ratio 0.9 RATIO Activated Partial Thromboplast Time 23.4 SEC Nasal Screen MRSA (PCR) MRSA NOT DETECTED (Monroe Jackman) Medical Decision Making Impression and Plan A: 37-year-old gentleman with a mild traumatic brain injury small frontal lobe contusions and traumatic subarachnoid hemorrhage along with a small interhemispheric subdural hemorrhage. Questionable posttraumatic seizure after the fall. We will place him on Keppra for early seizure prophylaxis. Also has a comminuted left distal radius fracture and is going to the OR this am. P: Continue with Neuro checks. Continue to increase activity after OR for wrist. Neurosurgically stable to transfer to floor follow up CT head stable and pt doing well. (Monroe Jackman) Attending Statement The exam, history, and the medical decision-making described in the above note were completed with the assistance of the mid-level provider. I reviewed and agree with the findings presented. I attest that I had a [id number] encounter with the patient on the same day, and personally performed and documented my assessment and findings in the medical record. CT scan of the head this morning with a resolving areas of small hemorrhage intracranially. He is sitting up in the chair and ambulated to the bathroom with physical therapy. Complains of headache but nausea has resolved. Complains of bilateral wrist pain left worse than right. Scheduled to undergo wrist fracture ORIF by orthopedic surgery today. Continue with close observation. Discussed with family at bedside. (Everardo Ramírez MD) Monroe Jackman November 02, 2017 10:31 Everardo Ramírez MD November 02, 2017 11:46
--- NOTE | 2017-11-02 11:01 | HHI.CCPN ---
Subjective 24 Hour Review/Hospital Course 11/02/2017 Patient was admitted last night after falling from a ladder and suffering small frontal subarachnoid hemorrhages with a left wrist fracture, he was found to have a possible right-sided wrist fracture on tertiary survey He is scheduled to go to the operating room today with orthopedic surgery for his wrist His subarachnoid hemorrhage is improving and he can go to the floor postoperatively barring any complications Objective Vital Signs Date Time Temp Pulse Resp B/P (MAP) Pulse Ox O2 Delivery O2 Flow Rate FiO2 11/02/17 06:00 84 11/02/17 04:00 98.6 20 139/68 (91) 95 11/01/17 21:33 21 11/01/17 19:00 Room Air Intake and Output 11/02/17 11/02/17 11/03/17 08:00 16:00 00:00 Intake Total 440 ml Output Total 1100 ml Balance -660 ml Result Diagram: 11/02/17 0514 11/02/17 0514 Imaging Last [address] 11/02/17 0600 Signed Impressions: Service Date/Time: Thursday, November 02, 2017 04:43 - CONCLUSION: Mild evolving parenchymal brain contusions. No new acute findings Ralph Rodriguez MD Chest CT 11/01/17 170 Signed Impressions: Service Date/Time: Wednesday, November 01, 2017 17:36 - CONCLUSION: 1. No focal consolidation or effusion. Minimal basilar airspace disease. Negative for acute traumatic injury within the thorax. Adair Hernandez MD Abdomen/Pelvis CT 11/01/17 1703 Signed Impressions: Service Date/Time: Wednesday, November 01, 2017 17:36 - CONCLUSION: 1. Negative for acute traumatic injury within the abdomen and pelvis. Fat-containing umbilical hernia. Adair Hernandez MD Pelvis X-Ray 11/01/17 161 Signed Impressions: Service Date/Time: Wednesday, November 01, 2017 16:11 - CONCLUSION: 1. Limited underpenetrated exam. 2. No acute fracture or dislocation. Christian Cutler MD Maxillofacial CT 11/01/17 161 Signed Impressions: Service Date/Time: Wednesday, November 01, 2017 16:30 - CONCLUSION: 1. Large soft tissue hematoma overlying the right scalp/supraorbital soft tissues. 2. No acute facial fractures. Christian Cutler MD Head CT 11/01/17 1612 Signed Impressions: Service Date/Time: Wednesday, November 01, 2017 16:30 - CONCLUSION: 1. Limited subarachnoid hemorrhage in the frontal high convexities and parafalcine region with questionable subtle intraparenchymal hemorrhage in the right anterior frontal mid convexities. 2. Large soft tissue hematoma in the right frontal scalp/periorbital region. No calvarial fracture. Christian Cutler MD Cervical Spine CT 11/01/17 1612 Signed Impressions: Service Date/Time: Wednesday, November 01, 2017 16:30 - CONCLUSION: 1. No acute fracture or subluxation. Christian Cutler MD Exam HOSPICE CARE CONSULTANT Alert and oriented, no acute distress [place] Coma Scale 15 Hemodynamic/Cardiac Regular rate and rhythm Pulmonary/Respiratory Clear to auscultation bilaterally Abdomen/GI Nutrition Soft, nontender, nondistended Urinary Catheter Assessment Urinary Catheter: No Vascular Central Line Catheter Vascular Central Line Catheter: No Assessment and Plan Plan Over today with orthopedic surgery for his wrist fracture Regular e diet and aggressive pulmonary toilet following surgery Patient can go to the floor postoperatively barring any complications Lawrence Forbes MD November 02, 2017 11:01
[2017-11-02] MEDS ORDERED: ROCURONIUM INJ 50 MG/5 ML SYRINGE IV PUSH ONE (12:00)
[2017-11-02] MEDS ORDERED: GLYCOPYRROLATE 1 MG/5 ML SYRINGE IV PUSH ONE (12:00)
[2017-11-02] MEDS ORDERED: ONDANSETRON HCL 4 MG/2 ML VIAL IV PUSH ONE (12:00)
[2017-11-02] MEDS ORDERED: PROPOFOL 200 MG/20 ML AMP IV ONE (12:00)
[2017-11-02] MEDS ORDERED: LIDOCAINE HCL 1% PF 5 ML SYRINGE OTHER ONE (12:00)
[2017-11-02] MEDS: SODIUM CHLORIDE 0.9% FLUSH 10 ML FLUSH IV FLUSH SCH ×2 (12:00→21:12)
[2017-11-02] MEDS ORDERED: SUCCINYLCHOLINE CHLORIDE 100 MG/5 ML SYRINGE IV PUSH ONE (12:00)
[2017-11-02] MEDS ORDERED: DEXAMETHASONE SOD PHOS 4 MG/ML VIAL IV ONE (12:00)
[2017-11-02] MEDS ORDERED: NEOSTIGMINE 5 MG/5 ML SYRINGE IV PUSH ONE (12:00)
[2017-11-02] MEDS: BACITRACIN TOP OINT 15 GM TUBE TOP SCH ×2 (12:01→21:12)
[2017-11-02] MEDS ORDERED: ceFAZolin 2 GM PREMIX 50 ML ONE (12:13)
[2017-11-02] MEDS ORDERED: ACETAMINOPHEN 1000 MG/100 ML 100 ML IV ONE (13:06)
--- NOTE | 2017-11-02 13:31 | PD.OP ---
cc: Dariusz Connelly MD Operative Report Date of Surgery: November 02, 2017 Preoperative Diagnosis: Comminuted displaced intra-articular left distal radius fracture Postoperative Diagnosis: Procedure: External fixation of left distal radius, open reduction fixation of left distal radius Anesthesia: General Surgeon: Dariusz Connelly Powder Blender(s): MEET Coleman PA-C The surgical procedure was assisted by my physician public relations assistant. My P.A. presence was necessary throughout this case for the manipulation and positioning of the surgical extremity. My P.A. was assisting me throughout the duration of this procedure. The skill set of a physician public relations assistant was medically necessary to complete this procedure. During the surgical case the surgical supervisor was working at the back table and the physician public relations assistant was directly assisting me. Operation and Findings: Implants used: ITS plate, Lui external fixation Plan of activity: Nonweightbearing Details of procedure: Patient was seen and evaluated preoperatively and found to have a displaced distal radius fracture. Informed consent was obtained after detailed discussion of risk and benefits including bleeding, infection, injury to arteries, nerves, and blood vessels, weakness and numbness of hand, and tendon rupture. Informed consent was obtained. Patient received IV antibiotics prior to incision. Timeout procedure was performed. Operative extremity was prepped with alcohol followed by Hibiclens and draped usual sterile fashion. A standard volar approach to the distal radius was utilized. A 3 inch incision was made over the FCR tendon. Tendon sheath was opened. Pronator quadratus was elevated up. The fracture site was now visualized. The fracture did have intra-articular extension. There was significant impaction and displacement of the articular surface. At this point decision was made to perform external fixation. 2 small incisions were made over the second metacarpal and 2 small incisions were made over the radial shaft. Pin sites were predrilled. 2 pins were placed in the radius. 2 additional pins were placed into the second metacarpal. An external fixator construct was now placed over the pins. Traction was applied. The fracture was reduced relatively well. Next attention was turned towards open reduction internal fixation. The articular surface was reduced. Fracture fragments were manipulated to achieve excellent reduction. K wires were used to hold provisional fixation. Fluoroscopy confirmed appropriate alignment of fracture. A variable angle distal radius plate was selected. Plate was provisionally fixed to bone with K wires. 2.7 and 2.4 cortical screws were used to compress plate to bone. Fluoroscopy confirmed appropriate alignment of fracture with well-placed hardware. Multiple 2.4 locking screws were now placed distally. Screws were predrilled and measured for appropriate length. 2 additional screws were placed into the shaft. K wires were removed. Final fluoroscopy revealed excellent of fracture with well-placed hardware. The wound was thoroughly irrigated with sterile saline. Subcutaneous tissue was closed with 3-0 Vicryl and skin was closed with 3-0 nylon. Sterile dressings were applied with Xeroform, 4 x 4, and Mat wrap. Patient was awakened and transferred to recovery room in stable condition Dariusz Connelly MD November 02, 2017 13:31
[2017-11-02] MEDS ORDERED: MIDAZOLAM HCL 2 MG/2 ML VIAL ONE (13:55)
[2017-11-02] MEDS ORDERED: *morphine SULFATE 4 MG/ML PERIprocedure ONLY ONE (14:01)
[2017-11-02] MEDS ORDERED: *LABETALOL HCL 100 MG/20 ML VIAL PERIprocedural Use ONLY ONE (14:03)
--- NOTE | 2017-11-02 14:11 | MB ---
cc: Dariusz Barron MD DATE: 11/02/2017 AKA: Ralph Bello. REASON FOR CONSULTATION: Comminuted left distal radius fracture. CONSULTING PHYSICIAN: Dr. Forbes. HISTORY: This patient known as Ralph Bello is approximately a 37-year-old male. He was working on a ladder. He was working on a screened enclosure over a pool. He fell approximately 14 feet. The patient hit the ground. He did hit his head. He had probable loss of consciousness. He remembers waking up in the ambulance. He had severe left wrist pain. X-rays in the emergency room revealed a displaced left distal radius fracture. He was also found to have an intracranial bleed. He is currently awake and alert in the Intensive Care Unit. His is at bedside. He also complains of mild right wrist pain. PAST MEDICAL HISTORY: Illnesses, none. PAST SURGICAL HISTORY: None. MEDICATIONS: None prior to hospitalization. ALLERGIES: NONE. FAMILY HISTORY: Noncontributory. SOCIAL HISTORY: The patient denies alcohol, tobacco or drug use. REVIEW OF SYSTEMS: The patient denies current headache, neck pain, chest pain, shortness of breath, abdominal pain, nausea, vomiting, recent weight loss, fevers or chills, numbness or tingling of extremities. He did have loss of consciousness yesterday. He does have some swelling and bruising of his forehead. He complains of moderate to severe left wrist pain. He has mild right wrist pain. LABORATORY DATA: Patient has a white blood cell count of 10.6, hematocrit of 40.9, platelet count of 265, INR 0.9. BUN is 15 and creatinine is 1.15. X-RAYS: X-rays of the left wrist are reviewed. X-rays reveal a comminuted intra-articular displaced left distal radius fracture. X-rays of right wrist were reviewed. X-rays reveal a small avulsion fracture off the dorsal carpal region. The radiocarpal joint is well aligned. No displaced fractures are noted. PHYSICAL EXAM: GENERAL: The patient is awake and alert. He is in no acute distress. He is moderately overweight. VITAL SIGNS: Temperature 98.4, pulse 68, respirations 15, blood pressure 172/74, O2 saturation 96% on room air. HEAD: The patient is normocephalic, except for some bruising and swelling of his forehead. Pupils are equal. EYES: Pupils are equal. NECK: Soft, nontender. The trachea is in the midline. ABDOMEN: Soft, nontender, nondistended. EXTREMITIES: Examination of the right arm reveals no significant pain with shoulder, elbow or wrist motion. He has intact sensation in all fingers. He has good cap refill in all fingers. Skin is intact. He has mild tenderness over the dorsal wrist ligaments. Radial pulse is palpable. Examination of the left arm reveals no significant pain with shoulder or elbow motion. He has mild swelling of the wrist. He has pain with any wrist motion. Skin is intact. Radial pulses palpable. Sensation intact in all fingers. Examination of bilateral lower extremities reveals no significant pain with hip, knee or ankle motion. Skin is intact to both feet. Dorsalis pedis pulses palpable. IMPRESSION: 1. Displaced intra-articular left distal radius fracture. 2. Right wrist sprain with small avulsion fracture. 3. Intracranial bleed. 4. Fall off ladder. PLAN: Treatment options were discussed with the patient. At this point, I would recommend open reduction internal fixation of left distal radius with possible external fixation of left wrist. Risks of surgery include bleeding, infection, injuries to arteries, nerves or blood vessels, nonunion, malunion, painful hardware, pin tract infection, as well as medical complications including blood clot, stroke, heart attack and . All questions were answered. I explained to him that he will likely develop posttraumatic arthritis and wrist stiffness from this injury. I will plan surgery today. A mid-level provider in my office, nurse practitioner or PA, may see this patient on a follow-up basis and continue to implement the objective of this plan including: Starting or adjusting medications, injections of muscle, tendon, bursa or joints, cast application, orthotic or brace application, physical therapy, further radiographic studies including x-ray, MRI, CT, ultrasounds or bone scan, vascular studies, neurologic studies, or other specialist consultations, and proceeding with surgical management as appropriate. MD TA Leiva/JOE , 01:39 PM , 02:11 PM
[2017-11-02] MEDS ORDERED: DO NOT ADM ANY ANTICOAGULANT DRUGS PRN (14:45)
--- NOTE | 2017-11-02 15:56 | RADRPT ---
EXAM DATE/TIME: 11/02/2017 13:11 [facility] COMPARISON: No previous studies available for comparison. INDICATIONS : Open reduction internal fixation of the left wrist. MEDICAL HISTORY : Non-responsive. SURGICAL HISTORY : Non-responsive. ENCOUNTER: Subsequent ACUITY: 2 days PAIN SCORE: Non-responsive. LOCATION: Left wrist. FINDINGS: 2 intraoperative spot images of the wrist. Volar internal fixation plate and multiple transfixing scr ews identified in the distal radius. Distal radius fracture alignment is near-anatomic. CONCLUSION: Intraoperative spot images of distal radius fracture with internal fixation hardware in place. Wai Bojorquez MD on November 02, 2017 at 15:54 Board Certified Radiologist. This report was verified electronically.
[2017-11-03] VITALS (9 sets, daily range): BP systolic 122–148; BP diastolic 71–89; PULSE 69–90; RESP 8–18; TEMP 98.3–99.4; O2SAT 93–99
[2017-11-03] MEDS: CHLORHEXIDINE GLUCONATE 2 % 1 PACK (2 CLOTHS) TOP SCH ×2 (04:00→20:26)
[2017-11-03] MEDS: ACETAMINOPHEN 325 MG TAB PO PRN ×3 (05:27→18:27)
[2017-11-03 06:50] LABS: AUTOMATED NEUTROPHIL # 9.6 TH/MM3 (1.8-7.7); BASOPHIL % 0.3 % (0.0-2.0); EOSINOPHIL % 0.3 % (0.0-4.0); HEMATOCRIT 39.9 % (39.0-51.0); HEMOGLOBIN 13.6 GM/DL (13.0-17.0); LYMPH % 17.4 % (9.0-44.0); LYMPHOCYTE # 2.3 TH/MM3 (1.0-4.8); MEAN CELL VOLUME 88.1 FL (80.0-100.0); MEAN CORPUSCULAR HEMOGLOBIN 29.9 PG (27.0-34.0); MEAN PLATELET VOLUME 7.7 FL (7.0-11.0); MONO % 9.3 % (0.0-8.0); MONOCYTE # 1.2 TH/MM3 (0-0.9); NEUT % 72.7 % (16.0-70.0); PLATELET COUNT 287 TH/MM3 (150-450); RED BLOOD COUNT 4.53 MIL/MM3 (4.50-5.90); RED CELL DISTRIBUTION WIDTH 13.4 % (11.6-17.2); WHITE BLOOD COUNT 13.1 TH/MM3 (4.0-11.0)
[2017-11-03 07:16] LABS: ALBUMIN 3.7 GM/DL (3.4-5.0); AST (GOT) 28 U/L (15-37); BLOOD UREA NITROGEN 11 MG/DL (7-18); CALCIUM 8.4 MG/DL (8.5-10.1); CHLORIDE 105 MEQ/L (98-107); CREATININE 0.92 MG/DL (0.60-1.30); GLOMERULAR FILTRATION RATE 92 ML/MIN (>89); GLUCOSE,RANDOM 102 MG/DL (74-106); SODIUM (NA) 141 MEQ/L (136-145)
[2017-11-03 07:17] LABS: ALT (GPT) 34 U/L (12-78)
[2017-11-03 07:20] LABS: ALKALINE PHOSPHATASE 65 U/L (45-117); TOTAL BILIRUBIN ADULT 0.6 MG/DL (0.2-1.0); TOTAL PROTEIN 6.7 GM/DL (6.4-8.2)
--- NOTE | 2017-11-03 08:37 | HHI.NSPN ---
(Monroe Jackman) History Chief Complaint: Headaches s/p fall with TBI. (Monroe Jackman) Interval History 37-year-old gentleman who is brought in as a trauma alert after a fall from a ladder about 12 feet. Patient is amnestic of the event with positive loss of consciousness. His main complaint is a headache with nausea and vomiting and the left wrist pain. relates that the friend who was with him at the time stated that he may have had a seizure after the fall. Denies any neck or back pain or any numbness or paresthesias in the upper lower extremities. Trauma workup included a CT scan of the head which revealed small frontal lobe contusion and traumatic cervical hemorrhage as well as a small interhemispheric frontal subdural hemorrhage without mass-effect or midline shift. CT the cervical spine is negative. He has a comminuted left radial fracture. 11/02/17: Pt complains of headache all over. No n/v, paresthesias or weakness in extremities other than left hand paresthesias and LUE is in a splint. Pt going to OR this am with orthopedics for left wrist fracture. 11/03/17: Pt complains of headache but better controlled with Percocet. No nausea, vomiting, weakness or paresthesias. Left external fixator in place. Pt ambulated short distance. (Monroe Jackman) Review of Systems General: Negative for: fever, chills, insomnia Respiratory: Negative for: shortness of breath, cough, sputum Cardiovascular: Negative for: chest pain Gastrointestinal: Negative for: nausea, vomitting, diarrhea, constipation ( Monroe Jackman) Exam Results Vital Signs Date Time Temp Pulse Resp B/P (MAP) Pulse Ox O2 Delivery O2 Flow Rate FiO2 11/03/17 06:00 69 11/03/17 04:00 99.2 18 148/78 (101) 99 11/02/17 20:15 Nasal Cannula 3.00 11/01/17 21:33 21 Intake and Output 11/03/17 11/03/17 11/04/17 08:00 16:00 00:00 Intake Total 680 ml Balance 680 ml (Monroe Jackman) Physical Examination General: Pt awake and alert. Resting in ICU in NAD. Eyes: pupils equal. Sclera anicteric. He has right periorbital edema and ecchymosis with a small abrasion/laceration right eyebrow area which is improving. Resp: CTA bilaterally. Heart: NSR no murmurs Abd: Soft positive bs Skin: He has right periorbital edema and ecchymosis with a small abrasion/ laceration right eyebrow area which the edema has improved today. Muscle: Moves LEs well. District Ranger right hand well. Left upper extremity with an external fixator in place. Neuro: Pt awake and alert. Pupils 3mm bilaterally reactive bilaterally. Follows commands well. Speech clear and appropriate. (Monroe Jackman) Lab, Micro, Other Results Last Impressions Head CT 11/02/17 0600 Signed Impressions: Service Date/Time: Thursday, November 02, 2017 04:43 - CONCLUSION: Mild evolving parenchymal brain contusions. No new acute findings Ralph Rodriguez MD Wrist X-Ray 11/02/17 0000 Signed Impressions: Service Date/Time: Thursday, November 02, 2017 13:11 - CONCLUSION: Intraoperative spot images of distal radius fracture with internal fixation hardware in place. Wai Bojorquez MD Chest CT 11/01/17 1703 Signed Impressions: Service Date/Time: Wednesday, November 01, 2017 17:36 - CONCLUSION: 1. No focal consolidation or effusion. Minimal basilar airspace disease. Negative for acute traumatic injury within the thorax. Adair Hernandez MD Abdomen/Pelvis CT 11/01/17 1703 Signed Impressions: Service Date/Time: Wednesday, November 01, 2017 17:36 - CONCLUSION: 1. Negative for acute traumatic injury within the abdomen and pelvis. Fat-containing umbilical hernia. Adair Hernandez MD Pelvis X-Ray 11/01/17 1612 Signed Impressions: Service Date/Time: Wednesday, November 01, 2017 16:11 - CONCLUSION: 1. Limited underpenetrated exam. 2. No acute fracture or dislocation. Christian Cutler MD Maxillofacial CT 11/01/17 1612 Signed Impressions: Service Date/Time: Wednesday, November 01, 2017 16:30 - CONCLUSION: 1. Large soft tissue hematoma overlying the right scalp/supraorbital soft tissues. 2. No acute facial fractures. Christian Cutler MD Cervical Spine CT 11/01/17 1612 Signed Impressions: Service Date/Time: Wednesday, November 01, 2017 16:30 - CONCLUSION: 1. No acute fracture or subluxation. Christian Cutler MD Chest X-Ray 11/01/17 0000 Signed Impressions: Service Date/Time: Wednesday, November 01, 2017 16:11 - CONCLUSION: 1. Negative trauma portable chest. Christian Cutler MD Laboratory Tests Test 11/03/17 05:52 White Blood Count 13.1 TH/MM3 Red Blood Count 4.53 MIL/MM3 Hemoglobin 13.6 GM/DL Hematocrit 39.9 % Mean Corpuscular Volume 88.1 FL Mean Corpuscular Hemoglobin 29.9 PG Mean Corpuscular Hemoglobin Concent 34.0 % Red Cell Distribution Width 13.4 % Platelet Count 287 TH/MM3 Mean Platelet Volume 7.7 FL Neutrophils (%) (Auto) 72.7 % Lymphocytes (%) (Auto) 17.4 % Monocytes (%) (Auto) 9.3 % Eosinophils (%) (Auto) 0.3 % Basophils (%) (Auto) 0.3 % Neutrophils # (Auto) 9.6 TH/MM3 Lymphocytes # (Auto) 2.3 TH/MM3 Monocytes # (Auto) 1.2 TH/MM3 Eosinophils # (Auto) 0.0 TH/MM3 Basophils # (Auto) 0.0 TH/MM3 CBC Comment DIFF FINAL Differential Comment Blood Urea Nitrogen 11 MG/DL Creatinine 0.92 MG/DL Random Glucose 102 MG/DL Total Protein 6.7 GM/DL Albumin 3.7 GM/DL Calcium Level 8.4 MG/DL Alkaline Phosphatase 65 U/L Aspartate Amino Transf (AST/SGOT) 28 U/L Alanine Aminotransferase (ALT/SGPT) 34 U/L Total Bilirubin 0.6 MG/DL Sodium Level 141 MEQ/L Potassium Level 3.5 MEQ/L Chloride Level 105 MEQ/L Carbon Dioxide Level 26.0 MEQ/L Anion Gap 10 MEQ/L Estimat Glomerular Filtration Rate 92 ML/MIN (Monroe Jackman) Medical Decision Making Impression and Plan A: 37-year-old gentleman with a mild traumatic brain injury small frontal lobe contusions and traumatic subarachnoid hemorrhage along with a small interhemispheric subdural hemorrhage. Questionable posttraumatic seizure after the fall. We will place him on Keppra for early seizure prophylaxis. Also has a comminuted left distal radius fracture and is going to the OR this am. P: Continue with Neuro checks. Transfer to 6n or 5N. Increase activity. Likely discharge tomorrow. (Monroe Jackman) Attending Statement The exam, history, and the medical decision-making described in the above note were completed with the assistance of the mid-level provider. I reviewed and agree with the findings presented. I attest that I had a [id number] encounter with the patient on the same day, and personally performed and documented my assessment and findings in the medical record. (Everardo Ramírez MD) Monroe Jackman November 03, 2017 08:37 Everardo Ramírez MD November 03, 2017 12:11
[2017-11-03] MEDS: DOCUSATE SODIUM 50 MG/SENNA 8.6 MG TAB PO SCH ×2 (09:00→23:19)
[2017-11-03] MEDS: BACITRACIN TOP OINT 15 GM TUBE TOP SCH ×2 (10:34→23:20)
[2017-11-03] MEDS: SODIUM CHLORIDE 0.9% FLUSH 10 ML FLUSH IV FLUSH SCH ×2 (10:34→23:20)
[2017-11-03] MEDS: levETIRAcetam INJ 500 MG in SODIUM CHLORIDE 0.9% INJ 100 ML IV SCH ×2 (10:34→23:20)
[2017-11-03] MEDS: PANTOPRAZOLE SODIUM 40 MG VIAL IVP SCH (10:34)
--- NOTE | 2017-11-03 11:27 | PD.ORT.PN ---
Subjective Subjective Remarks POD 1 s/p ORIF and application of exfix left wrist. s/p avulsion fx right wrist doing well. pain controlled. no new complaints. Objective Vitals Vital Signs Date Time Temp Pulse Resp B/P (MAP) Pulse Ox O2 Delivery O2 Flow Rate FiO2 11/03/17 07:00 99 Nasal Cannula 4.00 11/03/17 06:00 69 11/03/17 04:00 69 11/03/17 04:00 99.2 69 18 148/78 (101) 99 11/03/17 02:00 83 11/03/17 00:00 99.4 86 18 135/80 (98) 97 11/03/17 00:00 86 11/02/17 22:00 88 11/02/17 20:15 98 Nasal Cannula 3.00 11/02/17 20:00 98.9 88 20 131/79 (96) 97 11/02/17 20:00 88 11/02/17 19:00 97 Nasal Cannula 4.00 11/02/17 18:00 103 11/02/17 16:00 98.1 82 7 130/77 (94) 98 11/02/17 16:00 83 11/02/17 14:30 68 14 159/82 (107) 96 Nasal Cannula 3 11/02/17 14:15 72 17 167/85 (112) 96 Nasal Cannula 4 11/02/17 14:00 80 12 170/86 (114) 96 Nasal Cannula 4 11/02/17 13:43 97.6 90 15 178/97 (124) 96 Simple Mask 15 I/O 11/02/17 11/02/17 11/02/17 11/03/17 11/03/17 11/03/17 07:00 15:00 23:00 07:00 15:00 23:00 Intake Total 440 ml 500 ml 200 ml 680 ml Output Total 1100 ml 50 ml 950 ml Balance -660 ml 450 ml -750 ml 680 ml Intake Oral 440 ml 200 ml 680 ml IV Total 500 ml Output Urine Total 1100 ml 950 ml Estimated Blood Loss 50 ml # Voids 5 # Bowel Movements 0 2 0 Result Diagram: 11/03/17 0552 11/03/17 0552 Objective Remarks LUE: dressings clean and dry. intact. NVI. pin sites clean and dry. exfix in palce RUE: full motion of wrist with no pain. nvi Assessment & Plan Assessment and Plan 1) Left Distal Radius Fx s/p ORIF with application of exfix - POD 1 -NWB -daily dressing changes POD 2 -Pin Care BID -f/u with [facility] or LETY in 2 weeks 2) Right wrist Avulsion Fx -nonop -minimize weight bearing -no brace needed -will monitor Darci Matthew/First Harsha DAVIDSON November 03, 2017 11:27
--- NOTE | 2017-11-03 11:42 | HHI.CCPN ---
Subjective 24 Hour Review/Hospital Course 11/02/2017 Patient was admitted last night after falling from a ladder and suffering small frontal subarachnoid hemorrhages with a left wrist fracture, he was found to have a possible right-sided wrist fracture on tertiary survey He is scheduled to go to the operating room today with orthopedic surgery for his wrist His subarachnoid hemorrhage is improving and he can go to the floor postoperatively barring any complications 11/03/2017 Patient underwent ORIF with an external fixator of his left wrist fracture, right wrist fracture is nonoperative and not splinted He is slightly frontal today but improved clinically Plan is to transfer to floor today with Occupational Therapy and discharged home tomorrow Objective Vital Signs Date Time Temp Pulse Resp B/P (MAP) Pulse Ox O2 Delivery O2 Flow Rate FiO2 11/03/17 07:00 99 Nasal Cannula 4.00 11/03/17 06:00 69 11/03/17 04:00 99.2 18 148/78 (101) 11/01/17 21:33 21 Intake and Output 11/03/17 11/03/17 11/04/17 08:00 16:00 00:00 Intake Total 680 ml Balance 680 ml Result Diagram: 11/03/17 0552 11/03/17 0552 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
--- NOTE | 2017-11-03 11:47 | HHI.FF ---
Face to Face Verification Diagnosis: (1) Distal radius fracture, left Occupational Therapy Left UE Weight Bearing: Non WB Nursing Nursing: Teach and assist BID pin care Dressing Changes: Daily dressing change, Xeroform, Coverderm/Primapore I have seen patient Lawrence Bragg on 11/03/17. My clinical findings support the need for the requested home health care services because: Ltd mobility - disease progression I certify that my clinical findings support that this patient is homebound because: Post-op weakness Darci Matthew/Warehouse Operations Associate LETY November 03, 2017 11:47
[2017-11-03] MEDS ORDERED: PERI PO (14:20)
[2017-11-03] MEDS ORDERED: MAGN30S PO (14:20)
[2017-11-04 00:10] VITALS: BP 130/80; PULSE 85; RESP 16; TEMP 98.6; O2SAT 96
[2017-11-04 05:15] VITALS: BP 125/80; PULSE 80; RESP 16; TEMP 97.3; O2SAT 96
[2017-11-04 06:22] LABS: AUTOMATED NEUTROPHIL # 6.9 TH/MM3 (1.8-7.7); BASOPHIL % 0.3 % (0.0-2.0); EOSINOPHIL # 0.2 TH/MM3 (0-0.4); EOSINOPHIL % 2.3 % (0.0-4.0); HEMATOCRIT 42.9 % (39.0-51.0); HEMOGLOBIN 14.7 GM/DL (13.0-17.0); LYMPH % 22.8 % (9.0-44.0); LYMPHOCYTE # 2.4 TH/MM3 (1.0-4.8); MEAN CELL VOLUME 89.3 FL (80.0-100.0); MEAN CORPUSCULAR HEMOGLOBIN 30.7 PG (27.0-34.0); MEAN CORPUSCULAR HGB CONC 34.4 % (32.0-36.0); MEAN PLATELET VOLUME 7.8 FL (7.0-11.0); MONO % 8.4 % (0.0-8.0); MONOCYTE # 0.9 TH/MM3 (0-0.9); NEUT % 66.2 % (16.0-70.0); PLATELET COUNT 265 TH/MM3 (150-450); RED CELL DISTRIBUTION WIDTH 13.6 % (11.6-17.2); WHITE BLOOD COUNT 10.4 TH/MM3 (4.0-11.0)
[2017-11-04 06:40] LABS: ALBUMIN 3.8 GM/DL (3.4-5.0); ALT (GPT) 31 U/L (12-78); AST (GOT) 28 U/L (15-37); BICARBONATE 29.8 MEQ/L (21.0-32.0); BLOOD UREA NITROGEN 11 MG/DL (7-18); CALCIUM 8.5 MG/DL (8.5-10.1); CHLORIDE 106 MEQ/L (98-107); CREATININE 0.98 MG/DL (0.60-1.30); GLOMERULAR FILTRATION RATE 85 ML/MIN (>89); GLUCOSE,RANDOM 89 MG/DL (74-106); SODIUM (NA) 143 MEQ/L (136-145)
[2017-11-04 06:42] LABS: ALKALINE PHOSPHATASE 73 U/L (45-117); TOTAL BILIRUBIN ADULT 0.6 MG/DL (0.2-1.0)
[2017-11-04] MEDS ORDERED: ENDO7.5T10 PO (07:04)
--- NOTE | 2017-11-04 07:43 | PD.ORT.PN ---
Subjective Subjective Remarks POD 2 s/p ORIF and application of exfix left wrist. s/p avulsion fx right wrist doing well. pain controlled. no new complaints. Objective Vitals Vital Signs Date Time Temp Pulse Resp B/P (MAP) Pulse Ox O2 Delivery O2 Flow Rate FiO2 11/04/17 05:15 97.3 80 16 125/80 (95) 96 11/04/17 00:10 98.6 85 16 130/80 (97) 96 11/03/17 22:00 Room Air 11/03/17 21:15 99.1 84 17 130/79 (96) 95 11/03/17 18:44 3.00 11/03/17 16:00 98.4 90 18 122/71 (88) 95 11/03/17 12:00 98.3 79 18 138/85 (102) 95 11/03/17 10:00 81 11/03/17 08:00 98.9 74 8 148/89 (108) 93 11/03/17 08:00 74 I/O 11/03/17 11/03/17 11/03/17 11/04/17 11/04/17 11/04/17 07:00 15:00 23:00 07:00 15:00 23:00 Intake Total 680 ml 60 ml 1850 ml Balance 680 ml 60 ml 1850 ml Intake Oral 680 ml 60 ml 1850 ml # Voids 5 4 5 # Bowel Movements 0 0 Result Diagram: 11/04/17 0400 11/04/17 0400 Objective Remarks LUE: dressings clean and dry. intact. NVI. pin sites clean and dry. exfix in palce RUE: full motion of wrist with no pain. nvi Assessment & Plan Assessment and Plan 1) Left Distal Radius Fx s/p ORIF with application of exfix - POD 2 -NWB -daily dressing changes with xeroform/primapore -Pin Care BID -ortho clear for DC -f/u with [facility] or PA in 2 weeks 2) Right wrist Avulsion Fx -nonop -minimize weight bearing -no brace needed -will monitor Darci Matthew/Button Maker PA November 04, 2017 07:43
[2017-11-04 07:58] VITALS: BP 131/67; PULSE 79; RESP 20; TEMP 98; O2SAT 95
[2017-11-04] MEDS: DOCUSATE SODIUM 50 MG/SENNA 8.6 MG TAB PO SCH (08:40)
[2017-11-04] MEDS: PANTOPRAZOLE SODIUM 40 MG VIAL IVP SCH (08:40)
[2017-11-04] MEDS: SODIUM CHLORIDE 0.9% FLUSH 10 ML FLUSH IV FLUSH SCH (08:41)
[2017-11-04] MEDS: levETIRAcetam INJ 500 MG in SODIUM CHLORIDE 0.9% INJ 100 ML IV SCH (08:41)
[2017-11-04] MEDS: BACITRACIN TOP OINT 15 GM TUBE TOP SCH (08:48)
[2017-11-04 11:30] VITALS: BP 143/79; PULSE 84; RESP 20; TEMP 98.3; O2SAT 97
[2017-11-04] MEDS ORDERED: LEVE500 PO (11:38)
[2017-11-04] MEDS ORDERED: NEUR300C PO (11:38)
--- NOTE | 2017-11-04 14:57 | HHI.DS ---
Discharge Summary Admission Date November 01, 2017 at 5:24 pm Discharge Date: November 04, 2017 Admitting Diagnosis (1) Left radial fracture ICD Codes: S52.92XA - Unspecified fracture of left forearm, initial encounter for closed fracture Diagnosis: Principal Status: Acute (2) Right wrist fracture ICD Codes: S62.101A - Fracture of unspecified carpal bone, right wrist, initial encounter for closed fracture Diagnosis: Principal Status: Acute (3) Subarachnoid hemorrhage after traumatic injury without open intracranial wound, with prolonged loss of consciousness and return to pre-existing level of consciousness ICD Codes: S06.6X9A - Traumatic subarachnoid hemorrhage with loss of consciousness of unspecified duration, initial encounter Diagnosis: Principal Status: Acute CBC/BMP: 11/04/17 0400 11/04/17 0400 Significant Findings Laboratory Tests Test 11/01/17 16:15 11/01/17 17:08 11/02/17 04:00 11/02/17 05:14 Blood Urea Nitrogen 25 MG/DL (7-18) Creatinine 1.46 MG/DL (0.60-1.30) Random Glucose 127 MG/DL (74-106) Estimat Glomerular Filtration Rate 42 ML/MIN (>89) 55 ML/MIN (>89) Neutrophils (%) (Auto) 75.5 % (16.0-70.0) 73.3 % (16.0-70.0) Neutrophils # (Auto) 8.0 TH/MM3 (1.8-7.7) 7.8 TH/MM3 (1.8-7.7) Prothrombin Time 9.6 SEC (9.8-11.6) Activated Partial Thromboplast Time 23.4 SEC (24.3-30.1) Monocytes (%) (Auto) 9.1 % (0.0-8.0) Monocytes # (Auto) 1.0 TH/MM3 (0-0.9) Calcium Level 7.9 MG/DL (8.5-10.1) Chloride Level 108 MEQ/L (98-107) Test 11/03/17 05:52 11/04/17 04:00 White Blood Count 13.1 TH/MM3 (4.0-11.0) Neutrophils (%) (Auto) 72.7 % (16.0-70.0) Monocytes (%) (Auto) 9.3 % (0.0-8.0) 8.4 % (0.0-8.0) Neutrophils # (Auto) 9.6 TH/MM3 (1.8-7.7) Monocytes # (Auto) 1.2 TH/MM3 (0-0.9) Calcium Level 8.4 MG/DL (8.5-10.1) Estimat Glomerular Filtration Rate 85 ML/MIN (>89) Imaging Last Impressions Head CT 11/02/17 0600 Signed Impressions: Service Date/Time: Thursday, November 02, 2017 04:43 - CONCLUSION: Mild evolving parenchymal brain contusions. No new acute findings Ralph Rodriguez MD Wrist X-Ray 11/02/17 0000 Signed Impressions: Service Date/Time: Thursday, November 02, 2017 13:11 - CONCLUSION: Intraoperative spot images of distal radius fracture with internal fixation hardware in place. Wai Bojorquez MD Chest CT 11/01/17 1703 Signed Impressions: Service Date/Time: Wednesday, November 01, 2017 17:36 - CONCLUSION: 1. No focal consolidation or effusion. Minimal basilar airspace disease. Negative for acute traumatic injury within the thorax. Adair Hernandez MD Abdomen/Pelvis CT 11/01/17 1703 Signed Impressions: Service Date/Time: Wednesday, November 01, 2017 17:36 - CONCLUSION: 1. Negative for acute traumatic injury within the abdomen and pelvis. Fat-containing umbilical hernia. Adair Hernandez MD Pelvis X-Ray 11/01/17 1612 Signed Impressions: Service Date/Time: Wednesday, November 01, 2017 16:11 - CONCLUSION: 1. Limited underpenetrated exam. 2. No acute fracture or dislocation. Christian Cutler MD Maxillofacial CT 11/01/17 1612 Signed Impressions: Service Date/Time: Wednesday, November 01, 2017 16:30 - CONCLUSION: 1. Large soft tissue hematoma overlying the right scalp/supraorbital soft tissues. 2. No acute facial fractures. Christian Cutler MD Cervical Spine CT 11/01/17 1612 Signed Impressions: Service Date/Time: Wednesday, November 01, 2017 16:30 - CONCLUSION: 1. No acute fracture or subluxation. Christian Cutler MD Chest X-Ray 11/01/17 0000 Signed Impressions: Service Date/Time: Wednesday, November 01, 2017 16:11 - CONCLUSION: 1. Negative trauma portable chest. Christian Cutler MD PE at Discharge GENERAL: This is a 37-year-old male OOB and sitting in a recliner chair. No distress noted. SKIN: Warm and dry. HEAD: Atraumatic. Normocephalic. EYES: PERRLA. Right eye ecchymosis with slight edema. ENT: No nasal bleeding or discharge. Mucous membranes pink and moist. NECK: Trachea midline. No JVD. CARDIOVASCULAR: Regular rate and rhythm. RESPIRATORY: No accessory muscle use. Lungs are clear to auscultation. Breath sounds equal bilaterally. No distress or dyspnea. GASTROINTESTINAL: BS + x 4 quads. . Abdomen soft, non-tender, nondistended. MUSCULOSKELETAL: Extremities without cyanosis, or edema. Left upper extremity with ex-fix in place and wrapped in Mat bandage. + peripheral pulses x 4 extremities. Warm with good capillary refill and sensation. MAEW. NEUROLOGICAL: Awake and alert. Normal speech and pattern. Hospital Course [place]: This is a 37-year-old male who sustained a fall. He fell off a ladder, approximately 12 feet, and landed on the cement. He had a witnessed seizure. He was postictal. GCS 15 upon arrival. INJURIES: RIGHT eyebrow laceration (NO SUTURES) SAH RIGHT IPH LEFT Distal radius fx RIGHT wrist avulsion fx (non-op) PMHx: Procedures: 11/02: Left distal radius ORIF with ex-fix Consults: Neurosurgery. Orthopedics. Case management. The patient is now tolerating a po diet. Eating and drinking well. Pain is being managed well with PO pain medications, and patient is being a provided with a script for pain meds upon discharge. (NO driving while taking narcotic pain medication enforced to patient.) We have recommended to patient to continue with stool softeners while taking narcotic pain medications to prevent constipation. Pt has been participating in PT and OT while admitted at [facility] and has been ambulating with their assistance and independently. No PT needs at home. Patient does not have insurance for follow-up home health care visits. Extensive pin care teaching done at the bedside with RN and . is provided supplies, and written instructions for frequency and proper pin care procedure to be done. Verbalized understanding and proper teach back procedure. All follow up appointments have been provided and discussed with the patient. It is recommended that the patient keeps all his follow up appointments for continued recovery. Patient's condition and plan of care discussed with collaborating trauma surgeon. He is agreeable to plan for discharge today. Therefore, the patient is stable to be safely discharged home into his 's care from a trauma surgery standpoint. Thank you for allowing us to participate in his care. We wish Lawrence the best in his recovery. [facility] RIGHT [facility] Neurosurgery consulted and assisting in management and care Nonoperative management at this time Supportive care Serial neuro checks 11/02: CT brain -mild involving parenchymal contusion Patient remains alert and oriented OOB PT and OT ordered ST/cognitive evaluation Seizure prophylaxis Continue Keppra p.o. at home for a total of 7 day treatment Follow-up with neurosurgery outpatient Follow-up with neuropsych outpatient LEFT Distal radius fx RIGHT wrist avulsion fx (non-op) Orthopedics consulted and assisting in management care 11/02: Left distal radius ORIF with ex-fix Ex-fix to remain in place for at least 6 weeks Pain care per orthopedics Extensive teaching done with regarding pin care Antibiotics complete Encourage out of bed PT and OT ordered NWB LUE; Minimize WB RUE Follow-up with orthopedics outpatient Pt Condition on Discharge: Stable Discharge Disposition: Disch w/ Home Health Serv Discharge Instructions DIET: Follow Instructions for: As Tolerated, No Restrictions Activities you can perform: Non Weight Bearing Activities to Avoid: Driving for 24 hrs, Concussion Sports, Contact Sports, Lifting/Bending, Weight Bearing, Prolonged Standing, Strenuous Activity, Driving Other Activity Instructions: (NWB LUE; Minimize WB RUE) No driving. No driving while taking narcotic pain meds. Minnie Odonnell November 04, 2017 2:57 pm
== END 2017-11-04 14:06 | disposition home health service (06) | DRG 510 ==
LOC: NEPI 16:09 → EDBD 17:24 → NEDA 17:24 → N03B 17:52 → N05A 11-03 11:28
PROVIDERS: ADMIT Surgery; ATTEND Surgery
PROC: 0PHJ35Z Insertion of External Fixation Device into Left Radius, Percutaneous Approach (ICD-10-PCS; 2017-11-02)
PROC: 0PSJ04Z Reposition Left Radius with Internal Fixation Device, Open Approach (ICD-10-PCS; principal; 2017-11-02 14:30)
DX: S52.572A Other intraarticular fracture of lower end of left radius, initial encounter for closed fracture (principal); S06.6X9A Traumatic subarachnoid hemorrhage with loss of consciousness of unspecified duration, initial encounter; S06.5X9A Traumatic subdural hemorrhage with loss of consciousness of unspecified duration, initial encounter; S01.111A Laceration without foreign body of right eyelid and periocular area, initial encounter; R56.9 Unspecified convulsions; W11.XXXA Fall on and from ladder, initial encounter; R40.2412 Glasgow coma scale score 13-15, at arrival to emergency department; R41.3 Other amnesia; Z23 Encounter for immunization
CPT/HCPCS: 70450; 70486; 71045; 71260; 72125; 72170; 73100; 73110; 74177; 76000; 80048; 80053; 85025; 85610; 85730; 86850; 86900; 86901; 87641; 90715; 94150; C9113; J0131; J0171; J0330; J0461; J0690; J1100; J1580; J1953; J2250; J2270; J2405; J2710; J3010; J3370; Q9967